=== PATIENT | female | born 1995 | race Caucasian/White ===

== ENCOUNTER 2020-09-10 01:07 | Emergency (ER) | payer OTHER ==
[~2020-09-10] VITALS: Ht 160 cm; Wt 52.3 kg
--- NOTE | 2020-09-10 01:20 | PHYS DOC ---
General Adult EDM: Chief Complaint: DENTAL PROBLEM HPI: HPI: Patient is a 24yo female presenting for dental pain. This is an acute on chronic issue. She had never seen a dentist until earlier today, reports presenting for evaluation due to dental pain and after formal evaluation, was diagnosed with infected tooth #18 dental carry, prescribed and antibiotic, and discharged with recommendations to find dentist to perform either tooth extraction or root canal who does full sedation due to patient anxiety. Patient has been alternating tylenol and ibuprofen as instructed but pain is unbearable. No fever, swelling, exudate or other concerning signs/symptoms, just uncontrolled pain. She is otherwise healthy, no other known medical issues, no medications on a daily basis Review of Systems: Review of Systems: Fourteen body systems of review of systems have been reviewed. See HPI for pertinent positives and negative responses, other ryder all other systems are negative, non-pertinent or non-contributory Heart Score: C/O Chest Pain: No Risk Factors: Risk Factors: DM, Current or recent (<one month) smoker, HTN, HLP, family history of CAD, obesity. Risk Scores: Score 0 - 3: 2.5% MACE over next 6 weeks - Discharge Home Score 4 - 6: 20.3% MACE over next 6 weeks - Admit for Clinical Observation Score 7 - 10: 72.7% MACE over next 6 weeks - Early Invasive Strategies Physical Exam: PE: Constitutional: Well developed, well nourished, no acute distress, non-toxic appearance. HENT: Normocephalic, atraumatic, bilateral external ears normal, oropharynx moist, no oral exudates, nose normal. Tooth #18 consistent with infected dental carry without findings of abscess Eyes: PERRLA, EOMI, conjunctiva normal, no discharge. Neck: Normal range of motion, no tenderness, supple, no stridor. Cardiovascular: Heart rate tachycardic, sinus rhythm, no murmurs rubs or gallops Lungs & Thorax: Bilateral breath sounds clear to auscultation, hyperventilating Abdomen: Bowel sounds normal, soft, no tenderness, no masses, no pulsatile masses. Nonsurgical abdomen, no peritoneal signs Skin: Warm, dry, no erythema, no rash. Back: No tenderness, no CVA tenderness. Extremities: No tenderness, no cyanosis, no clubbing, ROM intact, no edema. Neurologic: Alert and oriented X 3, grossly normal motor & sensory function, no focal deficits noted. Psychologic: Tearful affect, anxious mood Current Patient Data: Vital Signs: Vital Signs Date Time Temp Pulse Resp B/P (MAP) Pulse Ox O2 Delivery O2 Flow Rate FiO2 09/10/20 01:25 98.5 103 20 120/83 (95) 97 Room Air 98.5 Vital Signs Date Time Temp Pulse Resp B/P (MAP) Pulse Ox O2 Delivery O2 Flow Rate FiO2 09/10/20 02:10 90 127/70 (89) 98 Room Air 09/10/20 01:25 98.5 20 98.5 EKG: EKG: [] Radiology/Procedures: Radiology/Procedures: [] Course & Med Decision Making: Course & Med Decision Making Tachycardic and hyperventilating on arrival due to fear of being in hospital, HPI and PE non-concerning for emergent/surigcal issues, consistent with intractable dental pain. Anxious state improved with deep breathing and verbal deescalation Magic mouthwash and x1 [place] 5 administered in ER with improvement in symptoms. Advised her to contact dentist and gave resources on local providers who perform dental procedures utilizing full sedation. I advised her to continue previously RX antibiotics as written to completion Strict return precautions discussed with good understanding, all questions and concerns addressed prior to departure Astrid Disclaimer: Astrid Disclaimer: This electronic medical record was generated, in whole or in part, using a voice recognition dictation system. Departure Departure Impression: Primary Impression: Pain due to dental caries Disposition: HOME / SELF CARE / HOMELESS Condition: IMPROVED Patient Instructions: Dental Caries, Dental Pain Additional Instructions: You were seen for dental pain. Please continue taking your previously prescribed antibiotic as instructed to completion. Take Ibuprofen (600-800mg) and Tylenol (500-650mg) alternating every 4-6 hours to help with inflammation and pain while you contact a dentist for further care. In addition, you were prescribed narcotic pain medication today that should be used in reserve for severe pain only. You are educated extensively on the risks of excepting this medication and best practices on how to take it etc. You should return to the ED if you develop worsening pain, fever > 101, swelling, redness, or any other new or concerning symptoms. Unfortunately, your pain is not likely to improve without seeing a dentist for further evaluation and treatment of your poor dentition and dental caries. Scripts Hydrocodone Bit/Acetaminophen (HYDROCODONE-APAP 5-325 ) 1 Tab Tablet 1 TAB PO PRN Q6HRS PRN for PAIN, #14 TAB 0 Refills Prov: WILD NUNES DO 09/10/20 WILD NUNES DO Sep 10, 2020 01:20
[2020-09-10] MEDS ORDERED: LIDO:MAALOX:BENADRYL 1:1:1 180 ML BOTTLE. PO PRN ×2 (01:30→01:46)
[2020-09-10] MEDS ORDERED: HYDROcodone/APAP 5/325MG 1 TAB TABLET PO ONE (02:00)
[2020-09-10 02:10] VITALS: BP 127/70
[2020-09-10] MEDS ORDERED: HYDR-2761 PO (02:12)
== END 2020-09-10 02:25 | disposition home or self-care (01) ==
LOC: ER 01:07
DX: K02.9 Dental caries, unspecified (principal); K04.7 Periapical abscess without sinus
CPT/HCPCS: 99283